=== PATIENT | female | born 1930 | race Caucasian/White ===

== ENCOUNTER 2016-06-14 | Inpatient (IN) | payer MEDICARE, OTHER ==
[~2016-06-14] MED LIST: ASPIR 8181 MG PO; CALCIUM W/VIT D1 TA PO; CELEXA20 M1 PO; COUMADIN3 MG PO; FISH OIL 1,2001 CAP PO; IRON325 M1 PO; LEVOXYL175 MCG PO; MULTIVITAMIN1 TAB PO; PRAVACHOL40 MG PO; STOOL SOFTENER1 EAC1 PO; VITAMIN C PO; XARELTO15 MG PO; [UNRECOGNIZED DRUG - OTHER] PO
[2016-06-14] MEDS ORDERED: COUMADIN3 M1 PO ×4 (13:40→13:45)
[2016-06-14] MEDS ORDERED: SYNTHROID175 MC1 PO ×2 (13:41→13:45)
[2016-06-14] MEDS ORDERED: GABAPENTIN300 M1 PO (13:41)
[2016-06-14] MEDS ORDERED: PRAVACHOL40 M1 PO ×2 (13:42→13:45)
[2016-06-14] MEDS ORDERED: CYMBALTA30 M1 PO ×2 (13:42→13:44)
[2016-06-14] MEDS ORDERED: ENTOCORT EC3 M1 PO (13:43)
[2016-06-14] MEDS ORDERED: ASPIRIN EC81 MG PO (13:43)
[2016-06-14] MEDS ORDERED: CALCIUM 600 +1 EAC6 PO (13:43)
[2016-06-14] MEDS ORDERED: CERTAVITE-ANTI1 EACH PO (13:44)
[2016-06-14] MEDS ORDERED: FISH OIL 11000 MG/CA PO (13:44)
[2016-06-14] MEDS ORDERED: CELEXA20 M2 PO (13:44)
[2016-06-14] MEDS ORDERED: FEOSOL325 M1 PO (13:44)
[2016-06-14] MEDS ORDERED: VITAMIN E400 UNI4 PO (13:45)
[2016-06-14] MEDS ORDERED: ZINC50 M2 PO (13:46)
[2016-06-14] MEDS ORDERED: TYLENOL EXTRA500 M1 PO (13:46)
[2016-06-14] MEDS ORDERED: LASIX20 M1 PO (13:46)
[2016-06-14] MEDS ORDERED: ASACOL HD800 M1 PO (13:47)
[2016-06-14] MEDS ORDERED: MUPIROCIN15 G2 TP (13:48)
[2016-06-16] MEDS ORDERED: SENNA-DOCUSATE1 EAC1 PO (11:02)
[2016-06-16] MEDS ORDERED: METOPROLOL TART25 M1 PO (11:09)
== END 2016-06-16 12:20 | DRG 65 ==
DX: I61.9 Nontraumatic intracerebral hemorrhage, unspecified (principal); G81.94 Hemiplegia, unspecified affecting left nondominant side; N17.9 Acute kidney failure, unspecified; I48.91 Unspecified atrial fibrillation; Z86.718 Personal history of other venous thrombosis and embolism; Z79.01 Long term (current) use of anticoagulants; Z86.711 Personal history of pulmonary embolism; I10 Essential (primary) hypertension; E78.5 Hyperlipidemia, unspecified; F43.20 Adjustment disorder, unspecified; E03.9 Hypothyroidism, unspecified; Z96.643 Presence of artificial hip joint, bilateral; Z96.653 Presence of artificial knee joint, bilateral; Z79.82 Long term (current) use of aspirin; F32.9 Major depressive disorder, single episode, unspecified; Z88.1 Allergy status to other antibiotic agents; Z88.2 Allergy status to sulfonamides; Z88.8 Allergy status to other drugs, medicaments and biological substances

== ENCOUNTER 2016-07-22 22:48 | Emergency (ER) | payer MEDICARE, OTHER ==
[~2016-07-22 22:48] MED LIST changes: +ASACOL HD800 M1 PO; +ASPIRIN EC81 MG PO; +CALCIUM 600 +1 EAC6 PO; +CELEXA20 M2 PO; +CERTAVITE-ANTI1 EACH PO; +COUMADIN3 M1 PO; +CYMBALTA30 M1 PO; +ENTOCORT EC3 M1 PO; +FEOSOL325 M1 PO; +FISH OIL 11000 MG/CA PO; +GABAPENTIN300 M1 PO; +LASIX20 M1 PO; +METOPROLOL TART25 M1 PO; +MUPIROCIN15 G2 TP; +PRAVACHOL40 M1 PO; +SENNA-DOCUSATE1 EAC1 PO; +SYNTHROID175 MC1 PO; +TYLENOL EXTRA500 M1 PO; +VITAMIN E400 UNI4 PO; +ZINC50 M2 PO
[2016-07-22] MEDS ORDERED: CALCIUM 600 +1 EA12 PO (23:42)
[2016-07-22] MEDS ORDERED: ASPIR 8181 M1 PO (23:43)
[2016-07-22] MEDS ORDERED: TYLENOL325 M2 PO (23:43)
[2016-07-22] MEDS ORDERED: DOCUSATE SODIU250 M1 PO (23:44)
[2016-07-22] MEDS ORDERED: DULCOLAX10 MG PR (23:44)
[2016-07-22] MEDS ORDERED: MILK OF MAGNESIA PO (23:45)
[2016-07-22] MEDS ORDERED: MACROBID 100 M100 M1 PO (23:45)
[2016-07-22] MEDS ORDERED: MIRALAX17 G2 PO (23:45)
[2016-07-22] MEDS ORDERED: MULTI VITAMIN1 EAC2 PO (23:46)
[2016-07-22] MEDS ORDERED: [UNRECOGNIZED DRUG - OTHER] TOP (23:49)
[2016-07-23 00:16] LABS: BASO % 0.1 % (0-2); EOS % 2.8 % (0-7); EOSINOPHIL ABSOLUTE COUNT 0.3 tho/cmm (0.0-0.7); HGB-HEMOGLOBIN 10.4 gm/dl (12.0-15.5); IMMATURE GRANULOCYTES ABSOLUTE 0.03 tho/cmm (0-0.03); IMMATURE GRANULOCYTES PERCENT 0.3 % (0-0.3); LYMPH % 14.8 % (20-45); LYMPH ABSOLUTE COUNT 1.5 tho/cmm (0.8-4.5); MCH (MEAN CORPUSCULAR HGB) 32.2 pg (28.0-32.0); MCHC MEAN CORPUSCULAR HGB CONC 33.5 % (32.0-36.0); MEAN PLATELET VOLUME 9.7 cmc (9.4-12.4); MONO % 12.8 % (0-12); MONOCYTE ABSOLUTE COUNT 1.3 tho/cmm (0.0-1.2); NEUTROPHILS % 69.2 % (40-80); PLATELET COUNT 197 tho/cmm (150-450); RED BLOOD COUNT 3.23 mil/cmm (4.00-5.20); RED CELL DISTRIBUTION WIDTH 13.5 % (12.4-16.4); WHITE BLOOD COUNT 10.1 tho/cmm (4.0-10.0)
[2016-07-23 00:26] LABS: ALB/GLOB RATIO 0.8 (0.8-2.0); ALBUMIN 2.8 g/dl (3.5-5.0); ALKALINE PHOSPHATASE 71 U/L (33-138); ALT/SGPT 21 U/L (12-78); ANION GAP 12 mmol/L (0-20); AST/SGOT 16 U/L (10-40); BILIRUBIN,TOTAL 0.6 mg/dl (0-1.5); BLOOD UREA NITROGEN 21 mg/dl (6-24); CALCIUM 9.2 mg/dl (8.5-10.5); CARBON DIOXIDE-VENOUS 25 mmol/L (22-32); CHLORIDE 99 mmol/l (96-110); CREATININE 1.14 mg/dl (0.50-1.10); GLUCOSE 100 mg/dL (70-110); POTASSIUM 4.3 mmol/L (3.7-5.1); SODIUM 132 mmol/L (135-145); eGFR VALUE FOR BLACK 50 mL/Min
[2016-07-23] MEDS ORDERED: VIBRAMYCIN100 M1 PO (00:47)
== END 2016-07-23 01:25 ==
LOC: EDMED 22:48
PROVIDERS: Emergency Medicine
DX: L03.116 Cellulitis of left lower limb (principal); E78.5 Hyperlipidemia, unspecified; Z86.73 Personal history of transient ischemic attack (TIA), and cerebral infarction without residual deficits; Z86.718 Personal history of other venous thrombosis and embolism; Z86.711 Personal history of pulmonary embolism; Z90.89 Acquired absence of other organs; Z79.82 Long term (current) use of aspirin; Z79.899 Other long term (current) drug therapy